=== PATIENT | male | born 2000 | race Two or more races ===

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

== ENCOUNTER 2020-01-26 20:53 | Emergency (ER) | payer SELFPAY ==
--- NOTE | 2020-01-26 22:30 | RAD ---
EXAM: CHEST ONE VIEW HISTORY: Difficulty breathing and chest pain upon inspiration. Cough for one day. COMPARISON: 09/16/2019 FINDINGS: The cardiac silhouette and pulmonary vasculature are within normal limits. The lungs are hyperexpande d but clear. No consolidation or pleural fluid is seen. No other interval change. IMPRESSION: No acute cardiopulmonary process.
== END 2020-01-26 23:02 | disposition home or self-care (01) ==
LOC: ERS 20:53
DX: J20.9 Acute bronchitis, unspecified (principal); F17.290 Nicotine dependence, other tobacco product, uncomplicated
CPT/HCPCS: 71045; 94640; J7620